=== PATIENT | female | born 1980 | race Caucasian/White ===

== ENCOUNTER 2018-09-15 14:59 | Observation (INO) | payer OTHER ==
[~2018-09-15] VITALS: Ht 175.3 cm; Wt 102.1 kg
--- NOTE | ~2018-09-15 | CON ---
[address] [address] CONSULTATION Name: LANDEN CAMPBELL Room: [address] M.R.#: [id number] Admission: 09/15/18 Attend Phys: Calderon Giron, Discharge: Date of : 80 Report #: [id number] THIS REPORT FOR: //name// CC: Sera Giron DATE OF SERVICE: 09/15/2018 GASTROINTESTINAL CONSULTATION: REASON FOR CONSULTATION: Recurrent nausea and vomiting. IMPRESSION: 1. Recurrent nausea and vomiting of uncertain etiology with associated dehydration. 2. Dehydration with the patient unable to eat or drink much of anything over the last several days. 3. Anxiety and increased stress of uncertain etiology. RECOMMENDATIONS: 1. The patient's condition was symptomatic enough to have to be hospitalized. She is not able to eat or drink much of anything in the last several days and was lightheaded and dizzy and had to receive IV fluids in our office. 2. For this reason, was brought to the hospital and admitted to the hospitalist, given IV fluids as well as IV Phenergan. 3. The patient is already scheduled for a gastric emptying scan be done tomorrow. 4. She had already undergone upper endoscopy, which was unrevealing. I have discussed the plans with the patient as well and she is agreeable to the same. 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 She has not been feeling well for the last couple of months, has been under increased stress. We did not delve into the history unless ____ with regards to the same. She was placed on Compazine tablets and she has been on Reglan 5 mg q.i.d. before meals and at bedtime, was prescribed by my partner, Dr. Monreal, and we arranged for her to undergo a gastric emptying scan, which is scheduled for tomorrow. I recommend that she stop the Reglan 48 hours prior to her study, but she has been off the Reglan for 4-5 days. Since that time, she has not been able to eat and drink or keep much of anything down in the last several days. She also has a problem with her stools. She was seen in our office today given IV fluids by technical administrator and I will return for an office visit to see how [place] [address] CONSULTATION Name: ADRIANLANDEN S Room: [address] [place] [facility]#: [id number] Admission: 09/15/18 Attend Phys: Calderon Giron, Discharge: Date of : 80 Report #: [id number] States she not been feeling well with complaints of rather severe reflux and ingestion. She has not been able to keep much of anything down. She denied any fevers or chills. She is being admitted to hospital for further evaluation and treatment. ALLERGIES: PENICILLIN, SULFA AND LISINOPRIL. PAST MEDICAL AND SURGICAL HISTORY: Essentially unrevealing. She was previously evaluated thoroughly by consultants in Gastroenterology having undergone upper and lower endoscopy back in 11/[address] scans and laboratory testing, all of which were unrevealing. She has a history of ankylosing spondylitis as well. Also, she has had a history of chronic headaches. SOCIAL HISTORY: The patient is single. She does not smoke or drink alcohol. She does not smoke marijuana. PHYSICAL EXAMINATION: VITAL SIGNS: Stable. She is mildly tachycardic. HEENT: She has dry mucous membranes. CARDIOPULMONARY: Revealed tachycardic rate and rhythm. LUNGS: Clear. ABDOMEN: Soft, not particularly tender. No rebound or guarding noted. DISCUSSION: 1. At the present time, patient is symptomatic with dehydration. We will proceed with gastric emptying scan to be done tomorrow and she will need to get some Phenergan prior to her procedure to ensure that she keeps the medication down. 2. I told her ____ and do not like to place people on Reglan unless absolutely necessary and for this reason, she will have the emptying scan to evaluate whether this is what she needs or whether she needs to be on some dicyclomine for possible dumping syndrome, which could also cause nausea, vomiting, diarrhea. 3. She will be seen in followup by my partner, Dr. Khalil, for the remainder of the hospital stay and he will make further recommendations regarding her care. 4. I made a copy of her EGD report and her pathology report and her most recent office visit notes from consultants in Gastroenterology that were dated 12/2017 for review. By: [id number] Martin DO /janay
[~2018-09-15 14:59] MED LIST: ADDERALL 15 MG15 MG; CLONAZEPAM 1 MG1 M1; DOXEPIN 10 MG C10 M1; FLEXERIL; FLEXERIL PO; FOLIC ACID1 MG; INDOMETHACIN SR75 M1; METHOTREXA25 MG/1 M2; NORCO 5-325 TA1 EAC1 PO; NORCO 5-325 TA1 EACH PO; ONDANSETRON HCL4 M2; SINGULAIR 10 MG10 M1; TOPAMAX 25 MG T25 M1; TRAMADOL 50 MG50 MG; TRANSDERM-SCO1 PATC1; ZANTAC 150MG T150 MG; ZYRTEC10 MG
[2018-09-15 16:00] VITALS: BP 158/118
[2018-09-15 16:41] LABS: HEMATOCRIT 40.6 % (37.0-47.0); HEMOGLOBIN 13.2 gm/dL (12.0-15.0); MCH 28.9 pg (26.0-34.0); MCHC 32.6 g/dL (28.0-37.0); MCV 88.8 fL (80.0-100.0); MPV 8.9 fl. (7.2-11.1); RBC 4.58 mil/uL (4.20-5.00); RDW-CV 13.9 % (10.5-14.5); WBC 15.9 thou/uL (4.0-11.0)
[2018-09-15 16:52] LABS: CALCIUM 8.9 mg/dL (8.5-10.1); CREATININE 0.9 mg/dL (0.6-1.3); POTASSIUM 3.5 mmol/L (3.5-5.1)
[2018-09-15 16:56] LABS: ALBUMIN 3.4 g/dL (3.4-5.0); MAGNESIUM 2.1 mg/dL (1.8-2.4); TOTAL BILIRUBIN 0.4 mg/dL (<0.1-1.0); TOTAL PROTEIN 6.9 g/dL (6.4-8.2)
--- NOTE | 2018-09-15 17:05 | NUR ---
PATIENT IS ALERT AND ORIENTED VERY PLEASANT. CAME TO THE FLOOR FROM GI DR OFFICE A DIRECT ADMIT. AMBULATE FROM THE FROM THE FRONT OF THE HOSPITAL [facility] ADMITTING STAFF. VITAL SIGNS ARE STABLE OTHER THAN BLOOD PRESSURE BEING ELEVATED. IV STARTED IN LEFT AC FLUIDS STARTED WELL. ROOM ORIENTATION AND ADMISSION ASSESSMENT DONE. CALL LIGHT IS IN REACH, WILL CONTINUE TO MONITOR.
[2018-09-15 19:45] VITALS: BP 143/97
[2018-09-15] MEDS ORDERED: LOSARTAN-HCTZ1 EACH PO (21:01)
[2018-09-15] MEDS ORDERED: FLEXERIL PO (21:01)
[2018-09-16 05:01] LABS: ABSOLUTE BASOPHILS 0.1 thou/uL (0.0-0.2); ABSOLUTE EOSINOPHILS 0.5 thou/uL (0.0-0.7); ABSOLUTE LYMPHOCYTES 3.3 thou/uL (0.8-5.3); ABSOLUTE MONOCYTES 0.6 thou/uL (0.0-1.2); ABSOLUTE NEUTROPHILS 7.4 thou/uL (1.6-8.1); BASOPHILS 0.8 %; EOSINOPHILS 4.3 %; HEMATOCRIT 36.6 % (37.0-47.0); HEMOGLOBIN 11.9 gm/dL (12.0-15.0); LYMPHOCYTES 27.8 %; MCH 29.2 pg (26.0-34.0); MCHC 32.6 g/dL (28.0-37.0); MCV 89.6 fL (80.0-100.0); MONOCYTES 5.2 %; NUCLEATED RBCS 0 /100WBC; PLATELET COUNT* 355 thou/uL (150-400); POLYS 61.9 %; RBC 4.09 mil/uL (4.20-5.00); RDW-CV 14.1 % (10.5-14.5); WBC 11.9 thou/uL (4.0-11.0)
--- NOTE | 2018-09-16 05:16 | NUR ---
PT SLEPT MOST OF SHIFT. ASSESSMENT DOCUMENTED. MEDS GIVEN PER E-JUN. IV PATENT, FLUIDS INFUSING. NO REPORTS OF PAIN. NAUSEA MEDS GIVEN PER E-MAR. PT REMAINED NPO WITH ICE CHIPS. WILL CONTINUE WITH PLAN OF CARE.
[2018-09-16 05:24] LABS: ALBUMIN 2.8 g/dL (3.4-5.0); CALCIUM 8.1 mg/dL (8.5-10.1); CREATININE 0.8 mg/dL (0.6-1.3); MAGNESIUM 2.1 mg/dL (1.8-2.4); POTASSIUM 3.6 mmol/L (3.5-5.1); TOTAL BILIRUBIN 0.4 mg/dL (<0.1-1.0); TOTAL PROTEIN 5.8 g/dL (6.4-8.2)
[2018-09-16 09:55] VITALS: BP 148/105
[2018-09-16 15:19] LABS: URINE BILIRUBIN NEGATIVE (Negative); URINE BLOOD NEGATIVE (Negative); URINE CLARITY CLEAR; URINE COLOR YELLOW; URINE GLUCOSE-RANDOM NEGATIVE (Negative); URINE KETONES NEGATIVE (Negative); URINE LEUKOCYTES-REFLEX NEGATIVE (Negative); URINE NITRITE-REFLEX NEGATIVE (Negative); URINE PROTEIN NEGATIVE (Negative); URINE UROBILINOGEN 0.2 E.U./dl (0.2-1.0)
[2018-09-16 15:25] LABS: AMP/METHAMP Negative (Negative); BARBITURATES Negative (Negative); BENZODIAZEPINES Negative (Negative); COCAINE Negative (Negative); METHADONE Negative (Negative); OPIATES Negative (Negative); PCP Negative (Negative); THC Negative (Negative)
[2018-09-16 16:00] VITALS: BP 142/105
--- NOTE | 2018-09-16 19:00 | NUR ---
LY ROUNDS COMPLETED. ~ERNESTORAgnes
--- NOTE | 2018-09-16 19:01 | NUR ---
PATIENT PLEASANT AND COOPERATIVE THIS SHIFT. GASTRIC EMPTYING TEST DONE THIS MORNING. SEE CHART FOR RESULTS. PATIENT HAD APPROX 30ML EMESIS DURING GASTRIC EMPTYING. C/O NAUSEA, PHENERGAN GIVEN, SEE MAR. PATIENT DENIES VOMITING THIS AFTERNOON. CLEAR LIQS GIVEN AT SUPPER MEAL, PATIENT SIPPING ICE WATER, APPLE JUICE OFFERED. IV FLUIDS INFUSING W/O DIFF. IV SITE NOTED WNL. CURRENTLY RESTING IN BED. DENIES NURSING NEEDS AT THIS TIME. ~TJRN
[2018-09-16] MEDS ORDERED: LISINOPRIL-HCT1 EAC2 PO (20:25)
[2018-09-16 21:55] VITALS: BP 150/106
[2018-09-17 03:40] LABS: ABSOLUTE BASOPHILS 0.1 thou/uL (0.0-0.2); ABSOLUTE EOSINOPHILS 0.5 thou/uL (0.0-0.7); ABSOLUTE LYMPHOCYTES 3.3 thou/uL (0.8-5.3); ABSOLUTE MONOCYTES 0.7 thou/uL (0.0-1.2); ABSOLUTE NEUTROPHILS 7.4 thou/uL (1.6-8.1); BASOPHILS 0.7 %; EOSINOPHILS 4.2 %; HEMATOCRIT 39.1 % (37.0-47.0); HEMOGLOBIN 12.7 gm/dL (12.0-15.0); LYMPHOCYTES 27.5 %; MCH 28.8 pg (26.0-34.0); MCHC 32.6 g/dL (28.0-37.0); MCV 88.5 fL (80.0-100.0); MONOCYTES 5.9 %; MPV 8.8 fl. (7.2-11.1); NUCLEATED RBCS 0 /100WBC; PLATELET COUNT* 350 thou/uL (150-400); POLYS 61.7 %; RBC 4.41 mil/uL (4.20-5.00); RDW-CV 13.7 % (10.5-14.5)
[2018-09-17 03:56] LABS: CALCIUM 8.5 mg/dL (8.5-10.1); CREATININE 0.7 mg/dL (0.6-1.3); MAGNESIUM 2.2 mg/dL (1.8-2.4); POTASSIUM 3.5 mmol/L (3.5-5.1)
--- NOTE | 2018-09-17 04:46 | NUR ---
PT REMAINED ALERT AND ORIENTED. VITALS STABLE EXCEPT HIGH BP. LOSARTAN AND HCT GIVEN ORDERED. PT STATED NAUSEA AND DRY HEAVING. PRN PHENERGAN GIVEN. PT DENIED PAIN. HOURLY ROUNDING COMPLETED. WILL CONTINUE TO MONITOR.
[2018-09-17 07:30] VITALS: BP 139/108
[2018-09-17 16:00] VITALS: BP 113/73; BP 152/112
--- NOTE | 2018-09-17 18:39 | NUR ---
PATIENT PLEASANT AND COOPERATIVE, CONVERSANT THIS SHIFT. PATIENT HAS DENIED NAUSEA/VOMITING. PATIENT MADELYN BITES OF GENERAL SUPPER MEAL. BP CONTINUES TO REMAIN ELEVATED, PATIENT DENIES S/S. DR NOTIFIED, ORDERS REC'D. PATIENT INSTRUCTED ON LOSARTAN BID, BUSPAR AND NORTRIPTYLINE, NEW MEDICATIONS. PATIENT STATES VERBALLY OF UNDERSTANING OF WRITTEN AND VERBAL INSTRUCTIONS. INDEP IN RM. IV FLUIDS INFUSING W/O DIFF. IV CATH SITE NOTED WNL. NO OTHER NURSING NEEDS VOICED AT THIS TIME. ~ERNESTORN
[2018-09-17 18:55] VITALS: BP 139/99
[2018-09-17 21:15] VITALS: BP 144/109
--- NOTE | 2018-09-18 04:44 | NUR ---
PT REMAINED ALERT AND ORIENTED. MEDS, FLUIDS GIVEN ORDERED. PT DENIED PAIN. NO NAUSEA OR VOMITING THIS SHIFT. PT SLEEPING THROUGH THE NIGHT. HOURLY ROUNDING COMPLETED. WILL CONTINUE TO MONITOR.
[2018-09-18 04:49] LABS: CALCIUM 8.8 mg/dL (8.5-10.1); CREATININE 0.7 mg/dL (0.6-1.3); POTASSIUM 3.8 mmol/L (3.5-5.1)
[2018-09-18 08:05] VITALS: BP 139/89
[2018-09-18] MEDS ORDERED: NORTRIPTYLINE H25 M3 PO (11:36)
[2018-09-18] MEDS ORDERED: BUSPIRONE HCL5 MG PO (11:37)
[2018-09-18 13:09] VITALS: BP 139/89
--- NOTE | 2018-09-18 13:37 | NUR ---
PATIENT GIVEN DISCHARGE INSTRUCTIONS AT THIS TIME. PATIENT VERBALIZED UNDERSTANDING IN REGARDS TO FOLLOW UP APPOINTMENTS, NEW MEDICATIONS, AND S/S TO CALL PHYSICIAN. IV REMOVED. PATIENT AMBULATED TO EXIT WITH STAFF.
== END 2018-09-18 13:39 | disposition home or self-care (01) ==
LOC: M.ORTHSURG 14:59
PROVIDERS: Family Medicine; Internal Medicine Gastroenterology; ADMIT Family Medicine
DX: E86.0 Dehydration (principal); R11.2 Nausea with vomiting, unspecified; I10 Essential (primary) hypertension; F90.9 Attention-deficit hyperactivity disorder, unspecified type; G62.9 Polyneuropathy, unspecified; R79.82 Elevated C-reactive protein (CRP); F41.9 Anxiety disorder, unspecified; Z88.2 Allergy status to sulfonamides; Z88.0 Allergy status to penicillin; Z88.8 Allergy status to other drugs, medicaments and biological substances